=== PATIENT | male | born 1950 | race Caucasian/White ===

== ENCOUNTER → 2020-07-07 09:51 | Outpatient (BNVA) | payer MEDICARE, OTHER, SELFPAY | PROVIDERS: Family Provider Family Medicine; PCP Family Medicine; Visit Provider Family Medicine | DX: E13.9 Other specified diabetes mellitus without complications (principal); M51.16 Intervertebral disc disorders with radiculopathy, lumbar region; F33.0 Major depressive disorder, recurrent, mild; F41.9 Anxiety disorder, unspecified | CPT/HCPCS: 80053; 83036 ==

== ENCOUNTER 2020-07-21 08:47 | Outpatient (CLI) | payer MEDICARE, OTHER, SELFPAY ==
--- NOTE | 2020-07-21 09:00 | CT_ITS ---
WS: [id number] CT LUMBAR SPINE, noncontrast. HISTORY: progressive back pain w radiation to left leg TECHNIQUE: Contiguous 2.5 mm axial imaging are performed. Sagittal and coronal reformats are submitte d and reviewed. All CT scans at [facility] use at least one of these dose optimization te chniques: automated exposure control; mA and/or kV adjustment per patient size (includes targeted exa ms where dose is matched to clinical indication); or iterative reconstruction. IV contrast: None DLP: 2065.44 mGycm COMPARISON: None available. Straightening of the normal lumbar lordosis. No acute compression fractures are identified. Moderate degenerative disc disease at L4-5 and L5-S1. No pars defects. L1-2: Mild osteophytic ridging. No stenosis. L2-3: Mild annular disc bulging and osteophytic ridging. Mild facet joint arthritis without significa nt stenosis. L3-4: Diffuse annular disc bulging and osteophytic ridging. Central calcification associated with the disc. There is mild central and bilateral subarticular recess stenosis. L4-5: Diffuse moderate annular disc bulging with moderate facet and ligamentum flavum disease. Degene rative air is noted within the central canal posterior superior endplate of L5 which is probably asso ciated disc. There is a central with associated disc protrusion. There is moderate central and bilate ral subarticular recess stenosis and LEFT foraminal stenosis. Mild RIGHT foraminal stenosis. L5-S1: Diffuse annular disc bulging with moderate osteophytic ridging. Osteophytes extend most signif icantly centrally and to the LEFT. There is osteophyte encroachment into the LEFT foramen and subarti cular recess causing moderate to severe stenosis on the LEFT. Partial osteophytic fusion across the anterior LEFT SI joint. CT/CT lumbar spine wo con* [id number] IMPRESSION: 1. Moderate central and bilateral lateral recess stenosis and LEFT foraminal s tenosis at L4-5 due to combination of disc and osteophyte disease. There is ass ociated gas within the disc protrusion contributing to the mild compression of the thecal sac. 2. Osteophyte encroaching upon the ventral thecal sac and LEFT foramen at L5-S 1 contributing to moderate to severe LEFT foraminal stenosis and LEFT subarticu lar recess stenosis. 3. Mild central and bilateral subarticular recess stenosis at L3-4.
== END 2020-07-21 08:48 | disposition home or self-care (01) ==
LOC: RADWPI 08:52
PROVIDERS: PCP Family Medicine; Visit Provider Family Medicine
DX: M48.061 Spinal stenosis, lumbar region without neurogenic claudication (principal); M25.78 Osteophyte, vertebrae
CPT/HCPCS: 72131

== ENCOUNTER → 2022-03-30 10:04 | Outpatient (BNVA) | payer MEDICARE, OTHER, SELFPAY | PROVIDERS: PCP Family Medicine; Visit Provider Family Medicine | DX: E13.9 Other specified diabetes mellitus without complications (principal); Z00.00 Encounter for general adult medical examination without abnormal findings; M51.16 Intervertebral disc disorders with radiculopathy, lumbar region; F41.9 Anxiety disorder, unspecified; F33.0 Major depressive disorder, recurrent, mild | CPT/HCPCS: 80053; 83036; 85025 ==

== ENCOUNTER → 2023-06-14 09:39 | Outpatient (BNVA) | payer MEDICARE, OTHER, SELFPAY | PROVIDERS: PCP Family Medicine; Visit Provider Family Medicine | DX: E13.9 Other specified diabetes mellitus without complications (principal) | CPT/HCPCS: 80053; 83036; 85025 ==

== ENCOUNTER → 2024-01-18 12:04 | Outpatient (BNVA) | payer MEDICARE, OTHER, SELFPAY | PROVIDERS: PCP Family Medicine; Visit Provider Family Medicine | DX: R73.03 Prediabetes (principal) | CPT/HCPCS: 83036 ==

== ENCOUNTER → 2025-03-20 10:12 | Outpatient (BNVA) | payer MEDICARE, OTHER, SELFPAY | PROVIDERS: PCP Family Medicine; Visit Provider Family Medicine | DX: E13.9 Other specified diabetes mellitus without complications (principal) | CPT/HCPCS: 80053; 83036; 85025 ==